=== PATIENT | male | born 1995 | race African-American/Black ===

== ENCOUNTER 2020-02-18 09:16 | Emergency (ER) | payer MEDICAID ==
[~2020-02-18] VITALS: Ht 180.3 cm; Wt 70.3 kg
--- NOTE | 2020-02-18 09:31 | NUR ---
AT BEDSIDE FOR EVAL.
--- NOTE | 2020-02-18 09:52 | NUR ---
[employer] AT BEDSIDE FOR XRAY.
--- NOTE | 2020-02-18 09:59 | NUR ---
COVID SWAB OBTAINED AND SENT TO LAB.
[2020-02-18 10:22] VITALS: BP 130/84
--- NOTE | 2020-02-18 10:22 | NUR ---
Patient discharged to home in stable condition. Written and verbal after care instructions given. Patient verbalizes understanding of instruction.
== END 2020-02-18 10:22 | disposition home or self-care (01) ==
LOC: ER 09:16
DX: J01.90 Acute sinusitis, unspecified (principal); R05 Cough; Z20.828 Contact with and (suspected) exposure to other viral communicable diseases; J45.909 Unspecified asthma, uncomplicated; Z90.49 Acquired absence of other specified parts of digestive tract
CPT/HCPCS: 71045; 99284; C9803; U0003